=== PATIENT | female | born 1995 | race African-American/Black ===

== ENCOUNTER 2018-04-04 21:15 | Emergency (ER) | payer MEDICAID ==
[~2018-04-04] VITALS: Ht 147.3 cm; Wt 43.5 kg
[2018-04-05] MEDS ORDERED: ALPRAZolam 0.5 MG TAB PO ONE (01:00)
[2018-04-05 01:56] LABS: Urine Amorphous Crystal MOD /hpf (None Seen); Urine Bacteria NONE SEEN /hpf (None Seen); Urine Blood Negative /uL (Negative); Urine Mucus FEW (None Seen); Urine Specific Gravity 1.025 (1.001-1.035); Urine WBC <1 /hpf (0 - 5)
[2018-04-05 02:18] LABS: Alcohol, Urine < 3.0 mg/dL (0-5); Amphetamine Screen, Urine NEGATIVE (NEGATIVE); Barbiturate Scree,Urine NEGATIVE (NEGATIVE); Benzodiazephine Screen, Urine NEGATIVE (NEGATIVE); Cannabinoid Screen, Urine NEGATIVE (NEGATIVE); Cocaine Screen, Urine NEGATIVE (NEGATIVE); Opiate Scree,Urine NEGATIVE (NEGATIVE); Phencyclidine Screen, Urine NEGATIVE (NEGATIVE)
[2018-04-05 03:34] VITALS: BP 114/65
== END 2018-04-05 05:15 | disposition home or self-care (01) ==
LOC: ER 21:15
DX: F41.9 Anxiety disorder, unspecified (principal); Q90.9 Down syndrome, unspecified
CPT/HCPCS: 80307; 81001

== ENCOUNTER 2018-04-23 21:05 | Emergency (ER) | payer MEDICAID ==
[2018-04-23 21:33] VITALS: BP 106/56
== END 2018-04-24 01:09 | disposition home or self-care (01) ==
LOC: ER 21:09
DX: F41.9 Anxiety disorder, unspecified (principal); Z76.0 Encounter for issue of repeat prescription